=== PATIENT | female | born 1995 | race Caucasian/White ===

== ENCOUNTER 2018-03-11 18:33 | Emergency (ER) | payer BC ==
[~2018-03-11] VITALS: Ht 167.6 cm; Wt 62.1 kg
== END 2018-03-11 21:13 | disposition home or self-care (01) ==
LOC: ER 18:33
DX: S61.242A Puncture wound with foreign body of right middle finger without damage to nail, initial encounter (principal); T63.691A Toxic effect of contact with other venomous marine animals, accidental (unintentional), initial encounter; M79.644 Pain in right finger(s); Y92.832 Beach as the place of occurrence of the external cause; Y93.89 Activity, other specified; Y99.8 Other external cause status